=== PATIENT | male | born 1955 | race African-American/Black ===

== ENCOUNTER 2017-08-16 16:30 | Emergency (ER) | payer OTHER ==
[~2017-08-16] VITALS: Ht 198.1 cm; Wt 88.5 kg
[2017-08-16] MEDS ORDERED: AMOXIL250 MG ORAL (17:09)
[2017-08-16] MEDS ORDERED: LOSARTAN POTASS25 MG ORAL (17:09)
[2017-08-16] MEDS ORDERED: Vancomycin 1.5gm/D5W 250ml 250 ML IVPB ONE (17:30)
--- NOTE | 2017-08-16 18:01 | Emergency Room Report ---
History of Present Illness General Chief Complaint: Skin Rash/Abscess Source: Patient Present Illness HPI 62-year-old male with hypertension right knee replacement 2016 presenting with swollen knee pain and bump onto his knee. States that the swelling started to occur 6 days ago. Also developed a large bump to his right knee that has some purulent drainage. Denies any fever chills. States is that this is her happened before. Does doctor yesterday who told him to come to the emergency room Allergies: Coded Allergies: No Known Allergies (Unverified , 08/16/17) Patient History Past Medical History: see triage record Past Surgical History: none Pertinent Family History: none Reviewed Nursing Documentation: PMH: Agreed; PSxH: Agreed Nursing Documentation-PMH Hx Hypertension: Yes Review of Systems All Other Systems: negative except mentioned in HPI Physical Exam Vital Signs Date Time Temp Pulse Resp B/P (MAP) Pulse Ox O2 Delivery O2 Flow Rate FiO2 08/16/17 17:04 98.3 80 17 126/81 99 Room Air 98.2 Sp02 EP Interpretation: reviewed, normal General Appearance: alert, GCS 15, moderate distress Head: normocephalic, atraumatic Eyes: bilateral eye normal inspection, bilateral eye PERRL, bilateral eye EOMI ENT: normal ENT inspection, normal pharynx, normal voice, moist mucus membranes Neck: normal inspection, full range of motion, supple Respiratory: normal inspection, lungs clear, normal breath sounds, no respiratory distress, no retraction, no wheezing, speaking full sentences, chest symmetrical Cardiovascular #1: normal inspection, regular rate, rhythm, no edema, normal capillary refill Cardiovascular #2: 2+ radial (R), 2+ radial (L) Gastrointestinal: normal inspection, non tender, soft, non-distended, no guarding Genitourinary: no CVA tenderness Musculoskeletal: other - Right knee is swollen, tender, however does has full range of motion of knee, anterior knee is a large 5 x 5 fluctuant mass, no current purulent drainage Neurologic: normal inspection, alert, oriented x3, responsive, motor strength/ tone normal, sensory intact, normal gait, speech normal Psychiatric: normal inspection, judgement/insight normal, memory normal Skin: normal inspection, normal color, no rash, warm/dry, well hydrated, normal turgor Medical Decision Making Diagnostic Impression: Primary Impression: Abscess of knee, right ER Course 62-year-old male with right knee pain and swelling with a history of right knee replacement DDX: Right knee appears extremely erythematous with an overlying abscess, possible infection also into the knee joint also infecting all the hardware Plan: Obtain labs, ua, ucx, CXR, EKG Orthopedic consult, vancomycin, IV fluids ER course: Patient has remained stable during ED stay. Received abx I spoke with , states that at [facility] they do not do these to surgeries because this would be an extensive surgery requiring washouts as well as removal and replacement of knee hardware. Spoke with Dr. Sung, from [facility], patient will be transferred due to insurance purposes. I also let him know that he will require continuation of IV antibiotics and orthopedic consult for possible washout. He verbalized understanding Disposition: Pt to be xferred to [facility] due to insurance purposes and will require ortho consult there. Pt stable for xfer Please note that this Emergency Department Report was dictated using [employer] rif[employer] hook technology software, occasionally this can lead to erroneous entry secondary to interpretation by the dictation equipment EKG Diagnostic Results EP Interpretation: Yes Rate: normal Rhythm: NSR ST Segments: No acute changes ASA given to patient: No Rhythm Strip EP Interpretation: Yes Rate: 90 Rhythm: NSR, no PVCs, no ectopy Xray: R knee Complete Indication: Pain EP Interpretation: Yes Interpretation: hardware noted with knee replacement, also with soft tissue swelling, no obvious effusion Impression: No acute disease Electronically signed by Shane Latham MD Laboratory Tests Test 08/16/17 17:40 White Blood Count 6.4 K/UL (4.8-10.8) Red Blood Count 3.43 M/UL (4.70-6.10) L Hemoglobin 10.2 G/DL (14.2-18.0) L Hematocrit 32.2 % (42.0-52.0) L Mean Corpuscular Volume 94 FL (80-99) Mean Corpuscular Hemoglobin 29.9 PG (27.0-31.0) Mean Corpuscular Hemoglobin Concent 31.8 G/DL (32.0-36.0) L Red Cell Distribution Width 13.3 % (11.6-14.8) Platelet Count 286 K/UL (150-450) Mean Platelet Volume 5.4 FL (6.5-10.1) L Neutrophils (%) (Auto) 54.5 % (45.0-75.0) Lymphocytes (%) (Auto) 28.1 % (20.0-45.0) Monocytes (%) (Auto) 12.0 % (1.0-10.0) H Eosinophils (%) (Auto) 4.6 % (0.0-3.0) H Basophils (%) (Auto) 0.8 % (0.0-2.0) Erythrocyte Sedimentation Rate 104 MM/HR (0-20) H Prothrombin Time 10.8 SEC (9.30-11.50) Prothrombin Time INR 1.0 (0.9-1.1) PTT 33 SEC (23-33) Sodium Level 137 MMOL/L (136-145) Potassium Level 3.3 MMOL/L (3.5-5.1) L Chloride Level 103 MMOL/L (98-107) Carbon Dioxide Level 26 MMOL/L (21-32) Anion Gap 8 mmol/L (5-15) Blood Urea Nitrogen 20 mg/dL (7-18) H Creatinine 1.2 MG/DL (0.55-1.30) Estimate Glomerular Filtration Rate > 60 mL/min (>60) Glucose Level 103 MG/DL (74-106) Lactic Acid Level 1.10 mmol/L (0.4-2.0) Calcium Level 9.1 MG/DL (8.5-10.1) Total Bilirubin 0.4 MG/DL (0.2-1.0) Aspartate Amino Transferase (AST) 31 U/L (15-37) Alanine Aminotransferase (ALT) 33 U/L (12-78) Alkaline Phosphatase 65 U/L (46-116) Total Creatine Kinase 89 U/L (26-308) Creatine Kinase MB 1.5 NG/ML (0.0-3.6) Creatine Kinase MB Relative Index 1.6 Troponin I 0.000 ng/mL (0.000-0.056) C-Reactive Protein, Quantitative 5.6 mg/dL (0.00-0.90) H Pro-B-Type Natriuretic Peptide 173 pg/mL (0-125) H Total Protein 8.8 G/DL (6.4-8.2) H Albumin 2.6 G/DL (3.4-5.0) L Globulin 6.2 g/dL Albumin/Globulin Ratio 0.4 (1.0-2.7) L Last Vital Signs Date Time Temp Pulse Resp B/P (MAP) Pulse Ox O2 Delivery O2 Flow Rate FiO2 08/16/17 17:04 98.3 80 17 126/81 99 Room Air 98.2 Disposition: XFER [facility]M HOSP Condition: Serious RetinoShane M.D. Aug 16, 2017 18:01
[2017-08-16 18:06] VITALS: BP 118/82
[2017-08-16 18:09] LABS: BASOPHILS % (AUTO) 0.8 % (0.0-2.0); EOSINOPHILS % (AUTO) 4.6 % (0.0-3.0); HEMATOCRIT 32.2 % (42.0-52.0); HEMOGLOBIN 10.2 G/DL (14.2-18.0); LYMPHOCYTES % (AUTO) 28.1 % (20.0-45.0); MEAN CORPUSCULAR VOLUME 94 FL (80-99); NEUTROPHILS % (AUTO) 54.5 % (45.0-75.0); PLATELET COUNT 286 K/UL (150-450); RED BLOOD COUNT 3.43 M/UL (4.70-6.10); RED CELL DISTRIBUTION WIDTH 13.3 % (11.6-14.8); WHITE BLOOD COUNT 6.4 K/UL (4.8-10.8)
[2017-08-16 18:17] LABS: ANION GAP 8 mmol/L (5-15); BLOOD UREA NITROGEN 20 mg/dL (7-18); CALCIUM 9.1 MG/DL (8.5-10.1); CARBON DIOXIDE 26 MMOL/L (21-32); CHLORIDE 103 MMOL/L (98-107); CREATININE 1.2 MG/DL (0.55-1.30); POTASSIUM 3.3 MMOL/L (3.5-5.1); SODIUM 137 MMOL/L (136-145)
[2017-08-16 18:30] LABS: ALANINE AMINOTRANSFERASE 33 U/L (12-78); ALBUMIN 2.6 G/DL (3.4-5.0); ALBUMIN/GLOBULIN RATIO 0.4 (1.0-2.7); ALKALINE PHOSPHATASE 65 U/L (46-116); ASPARTATE AMINO TRANSFERASE 31 U/L (15-37); BILIRUBIN,TOTAL 0.4 MG/DL (0.2-1.0); CKMB 1.5 NG/ML (0.0-3.6); CREATINE KINASE 89 U/L (26-308)
[2017-08-16] MEDS ORDERED: Isovue-300 100ml vial INJ PRN (19:00)
[2017-08-16 21:41] VITALS: BP 118/82
--- NOTE | 2017-08-17 14:38 | Diagnostic Imaging Report ---
Indication: Right knee pain, fluctuant mass anterior to the knee Technique: No IV contrast utilized. Spiral acquisitions obtained through the right knee Multiplanar reconstructions were generated. Total dose length product 484 mGycm. CTDIvol(s) 15 mGy. Radiation dose was minimized using automated exposure control Comparison: Plain radiographs earlier the same day Findings: There is considerable image degradation due to streak artifact from the right knee prosthesis. Anterior to the upper tibial stem, there is suggestion of a collection which is immediately anterior to the surface of the bone, deep to the subcutaneous fat, measures approximately 6 6.8 cm transverse by 3.5 cm AP. More cephalad, this process is completely obscured by streak artifact. Above the denser part of the femoral prosthesis, this is not visualized, but there is thickening of the anterior tissues and edema of the surrounding fat. There is loss of the anterior cortex of the femur anterior to the distal stem which appears chronic. There is considerable proliferative new bone surrounding the prosthesis. There is questionable lucency surrounding the cement bone interface of the tibial stem, which is more apparent than on the plain radiographs, and some erosion of the lateral cortex. There is considerable soft tissue thickening of the synovium, but no definite joint effusion. There is also thickening of the soft tissues anterior and surrounding the distal femur, with dystrophic calcification present. There is irregular periosteal thickening somewhat diffusely, and chronic appearing destructive changes of the distal femur, proximal tibia, and to a lesser extent the fibular head, better visualized on the plain radiographs. Chronic appearing destructive changes of the patella on plain radiographs are not well demonstrated on CT due to the streak artifact. Impression: Right knee prosthesis in place, as described Possible fluid collection seen anteriorly to the proximal tibia, only a small portion of which is visualized due to obscuration by streak artifact. Given stated clinical history, this could represent and abscess. Ultrasound may be useful for better visualization. This was not described in the [facility] preliminary report. Discrepancy has been reported to [facility]. This finding is reportedly evident clinically, per the electronic medical record Questionable lucency about the distal cement bone interface, with some erosion of the adjacent tibial cortex. This could represent particle disease. Infection not excludable Other extensive destructive changes of the distal fibula, proximal tibia, and femur as described on plain radiograph, appearance mostly suggestive of chronic process. Uncertain whether this represents chronic changes related to the prosthesis, active quiescent destructive change, or could represent changes preceding the surgery. Correlation with any prior outside radiographs and may be available would be useful Synovial thickening without definite effusion No evidence of fracture Remainder of the findings agree with the preliminary interpretation provided overnight by [facility] teleradiology service. The CT scanner at [facility] is accredited by the [employer] and the scans are performed using protocols designed to limit radiation exposure to as low as reasonably achievable to attain images of sufficient resolution adequate for diagnostic evaluation.
--- NOTE | 2017-08-17 14:38 | Diagnostic Imaging Report ---
Indication: Chest pain Technique: One view of the chest Comparison: none Findings: Lungs and pleural spaces are clear. Heart size is normal Impression: No acute process
--- NOTE | 2017-08-17 14:38 | Diagnostic Imaging Report ---
Indication: Knee pain Technique: 3 views of the right knee Comparison: None Findings: There is a right knee prosthesis. There is extensive chronic appearing destructive and proliferative change of the distal femur and proximal tibia. There is also chronic appearing destructive change of the patella. Heterotopic ossification is seen surrounding the knee joint and distal femur. There is evidence of some swelling of the joint. No periprosthetic lucency demonstrated. Impression: Postsurgical right knee, as described Advanced destructive changes of the surrounding bones. This appears most likely chronic, but superimposed acute infection cannot be excluded No periprosthetic lucency to suggest prosthesis infection or loosening
--- NOTE | 2017-08-19 12:20 | Cardiology Report ---
APPROVED REPORT EKG Measurement Heart [id number] Normal sinus rhythm Normal ECG
== END 2017-08-16 21:50 | disposition short-term general hospital (02) ==
LOC: EMR 18:40
DX: L02.415 Cutaneous abscess of right lower limb (principal); Z96.651 Presence of right artificial knee joint; I10 Essential (primary) hypertension
CPT/HCPCS: 36415; 71045; 73562; 73701; 80053; 82550; 82553; 83605; 83880; 84484; 85025; 85610; 85651; 85730; 86140; 86850; 86900; 86901; 87040; 93005; 96365; 96374; 96375; 99285; J3370; Q9967